=== PATIENT | male | born 1960 | race Caucasian/White ===

== ENCOUNTER → 2020-09-03 | Outpatient (CLI) | payer OTHER ==
[2020-09-03 09:29] LABS: BASOPHILS % (AUTO) 6 % (0-10); EOSINOPHILS # (AUTO) 0.1 10^3/uL (0.0-0.3); EOSINOPHILS % (AUTO) 2 % (0-10); HEMATOCRIT 48 % (40-54); HEMOGLOBIN 16.4 G/DL (13.3-17.7); LYMPHOCYTES # (AUTO) 1.2 X 10^3 (1.0-4.0); LYMPHOCYTES % (AUTO) 17 % (12-44); MEAN CORPUSCULAR HEMOGLOBIN 34 PG (25-34); MEAN CORPUSCULAR HGB CONC 35 G/DL (32-36); MEAN CORPUSCULAR VOLUME 98 FL (80-99); MEAN PLATELET VOLUME 10.9 FL (7.4-10.4); MONOCYTES # (AUTO) 0.8 X 10^3 (0.0-1.0); MONOCYTES % (AUTO) 13 % (0-12); NEUTROPHILS # (AUTO) 4.4 X 10^3 (1.8-7.8); NEUTROPHILS % (AUTO) 67 % (42-75); PLATELET COUNT 270 10^3/uL (130-400); WHITE BLOOD COUNT 6.7 10^3/uL (4.3-11.0)
[2020-09-03 09:40] LABS: ALBUMIN 3.4 GM/DL (3.2-4.5); BILIRUBIN,TOTAL 0.4 MG/DL (0.1-1.0); CALCIUM 8.7 MG/DL (8.5-10.1); CREATININE SERUM 2.73 MG/DL (0.60-1.30); POTASSIUM 3.8 MMOL/L (3.6-5.0); TOTAL PROTEIN 7.3 GM/DL (6.4-8.2)
--- NOTE | 2020-09-03 11:03 | Diagnostic Imaging Report ---
PROCEDURE: CT abdomen and pelvis without contrast. TECHNIQUE: Multiple contiguous axial images were obtained through the abdomen and pelvis without the use of intravenous contrast. Auto Exposure Controls were utilized during the CT exam to meet ALARA standards for radiation dose reduction. INDICATION: A 1 weeks history of diarrhea with intermittent nausea, vomiting and fever. No relevant comparison. FINDINGS: There is fatty infiltration of the liver with no gallstone or bile duct dilatation. There are no radiopaque kidney stones are is no hydroureteronephrosis. There is no bowel obstruction, no pneumatosis or free air. No ascites, abscess, hematoma or acute fluid collection. There is some thickening of the [place] of the colon suspicious for mild colitis. The patient's appendix is also prominent and measures 9 mm outer wall to outer wall diameter. No appendicolith and no convincing evidence for periappendiceal edema. Spleen, adrenals and pancreas are negative. The lung bases nonacute. The osseous structures nonacute. The atherosclerotic aorta is nonaneurysmal. IMPRESSION: Findings likely reflect mild changes of colitis without obstruction or perforation. Knowledge of mild prominence of the appendix at 9 mm but no appendicolith or definite periappendiceal edema. Fatty liver with no acute biliary abnormality. Dictated by: Dictated on workstation # [id number]
== END ==
LOC: LAB FS 08:50
PROVIDERS: ATTEND Nurse Practitioner Family
DX: K52.9 Noninfective gastroenteritis and colitis, unspecified (principal); I10 Essential (primary) hypertension; E66.9 Obesity, unspecified; Z87.898 Personal history of other specified conditions
CPT/HCPCS: 36415; 74176; 80053; 85025

== ENCOUNTER → 2020-09-05 | Outpatient (CLI) | payer OTHER ==
[2020-09-05 17:38] LABS: CALCIUM 9.5 MG/DL (8.5-10.1); CREATININE SERUM 1.29 MG/DL (0.60-1.30)
[2020-09-05 17:39] LABS: ALBUMIN 3.5 GM/DL (3.2-4.5)
== END ==
LOC: LAB FS 16:49
PROVIDERS: ATTEND Nurse Practitioner Family
DX: R94.4 Abnormal results of kidney function studies (principal)
CPT/HCPCS: 36415; 80053